=== PATIENT | male | born 1940 | race Caucasian/White ===

== ENCOUNTER → 2017-07-30 | Outpatient (CLI) | payer MEDICARE, OTHER ==
[~2017-07-30] MED LIST: ASPIRIN ADULT L81 M2 PO; ATENOLOL25 MG PO; MELOXICAM15 MG PO; NEURONTIN 300M300 MG PO; TEMAZEPAM15 MG PO
--- NOTE | 2017-07-30 13:41 | RADIOLOGY REPORT PS360 ---
EXAM: LUMBAR SPINE 5 VIEWS HISTORY: Low back pain with right-sided sciatica LUMBAGO WITH RT SCIATICA ORDERING PHYSICIAN: Tiburcio Saba MD PATIENT AGE: 77 years COMPARISON: None FINDINGS: Mild multilevel lumbar spondylosis with mild degenerative disc disease at L3-L4 L5-S1 along with endplate osteophytes at L1, L2, and L3. There is 2 mm retrolisthesis of L3 on L4. No fracture or dislocation. No lytic or blastic change. Facet arthritic changes are present at L5-S1. Incidental vascular calcification. There is a 5 mm left renal stone lung lower pole the left kidney IMPRESSION: 1. Lumbar spondylosis as described above with no acute findings. 2. Left nephrolithiasis.
== END ==
LOC: RAD 10:14
DX: M54.41 Lumbago with sciatica, right side (principal)

== ENCOUNTER 2017-10-18 10:32 | Day surgery (SDC) | payer MEDICARE, OTHER ==
[~2017-10-18] VITALS: Ht 177.8 cm; Wt 90.7 kg
[~2017-10-18 10:32] MED LIST changes: +JANUVIA100 MG PO; +LOSARTAN POTASS50 MG PO; +TAMSULOSIN HYD0.4 MG PO
[2017-10-18 10:52] VITALS: BP 107/62
[2017-10-18 11:24] VITALS: BP 107/62
[2017-10-18 11:26] VITALS: BP 162/79
--- NOTE | 2017-10-18 11:35 | Procedure Note ---
Procedure detail Date of procedure: 10/18/17 Anesthesiologist: Giancarlo Greenfield Complications: None Pre-procedure diagnosis: Degenerative disease lumbar spine multiple levels. Post-procedure diagnosis: Same. Indications for procedure: Very pleasant 77-year-old white male presented to our procedural clinic today for his initial lumbar epidural surgery injection at L4-5 level. Patient describes low back pain as constant, dull, aching. Also, LEFT hip and leg radicular symptoms. Procedure detail: Procedure: Lumbar epidural steroid injection under fluoroscopy Informed consent was obtained and the risks and benefits of the procedure were explained to the patient. The patient was taken to the procedure room and noninvasive monitors placed, including noninvasive blood pressure cuff and pulse oximeter. The back was viewed using C-arm Fluoroscopy and prepped using Betadine as a cleansing solution and the L4-L5 interspace was palpated. Skin and subcutaneous tissues were anesthetized using lidocaine 1.5% and a 25-gauge needle. After this, an 18-gauge Touhy epidural needle was placed into the L4-L5 interspace and advanced using fluoroscopic guidance and loss of resistance to air until the epidural space was encountered. After confirmation of needle placement in the epidural space, with dye, a solution containing lidocaine 1.5%, 4 mL and Depo-Medrol 80 mg were incrementally injected into the lumbar epidural space. The patient tolerated the procedure well with no complications. The patient was observed in the Pain Clinic and then discharged home neurologically intact. Plan and disposition: Patient was reevaluated 10 minutes post procedure. He's doing very well. at 1134
[2017-10-18 11:43] VITALS: BP 129/55
== END 2017-10-18 11:45 | disposition home or self-care (01) ==
LOC: PM 10:32
PROC: 3E0R33Z Introduction of Anti-inflammatory into Spinal Canal, Percutaneous Approach (ICD-10-PCS; principal; 2017-10-18)
PROC: 3E0R3BZ Introduction of Anesthetic Agent into Spinal Canal, Percutaneous Approach (ICD-10-PCS; 2017-10-18)
PROC: B01B1ZZ Fluoroscopy of Spinal Cord using Low Osmolar Contrast (ICD-10-PCS; 2017-10-18)
DX: M51.16 Intervertebral disc disorders with radiculopathy, lumbar region (principal)
CPT/HCPCS: J1030; Q9966